=== PATIENT | female | born 1950 | race Caucasian/White ===

== ENCOUNTER 2018-02-27 21:48 | Inpatient (IN) ==
--- NOTE | 2018-02-27 22:30 | ED ---
HPI General Chief Complaint: Extremity Injury, Upper Stated Complaint: Evac/Fall Time Seen by Provider: 02/27/18 22:13 Source: patient and EMS Mode of arrival: EMS Limitations: no limitations History of Present Illness HPI narrative: TRIPPED AND FELL INTO THE WALL HEARD CRUNCHING BREAKING SOUND SEVERE LEFT HUMERAL AREA DEFORMITY AND PAIN , PAIN SEVERE 10/10 WHEN MOVING , SHEE TOOK HYDROCODONE 10 MG po WHICH HELPED REDUCE PAIN TO 5/10 LOCALIZED SEVERE DULL ACHY FEELING LEFT MID SHAFT HUMERUS. OCCURRED JPTA.. PT HAS HTN AND COPD AND RA HX complaint: injury to: left and shoulder Onset (ago): minute(s) Related Data Home Medications Medication Instructions Recorded Confirmed Humira See Label Instructions .ROUTE 02/28/18 02/28/18 .COMPLEX amlodipine 2.5 mg PO DAILY 02/28/18 02/28/18 amlodipine 5 mg PO DAILY 02/28/18 02/28/18 ciprofloxacin HCl [Cipro] 500 mg PO DAILY 02/28/18 02/28/18 duloxetine [Cymbalta] 80 mg PO DAILY 02/28/18 02/28/18 gabapentin 300 mg PO TID 02/28/18 02/28/18 hydrocodone-acetaminophen 1 tab PO Q6H PRN 02/28/18 02/28/18 methotrexate 02/28/18 02/28/18 metoprolol tartrate 25 mg PO BID 02/28/18 02/28/18 paroxetine HCl [Paxil] 40 mg PO DAILY 02/28/18 02/28/18 prednisone 5 mg PO DAILY 02/28/18 02/28/18 sulfamethoxazole-trimethoprim 1 tab PO DAILY 02/28/18 02/28/18 [Bactrim DS] Allergies Allergy/AdvReac Type Severity Reaction Status Date / Time Penicillins Allergy Anaphylaxis Verified 02/27/18 22:30 Review of Systems Except as stated in HPI: all other systems reviewed are negative [facility] Medical History Medical History COPD (chronic obstructive pulmonary disease) (Acute) HTN (hypertension) (Acute) Rheumatoid arthritis (Acute) Surgical History Surgical History H/O Spinal surgery (Acute) H/O foot surgery (Acute) History of gastric bypass (Acute) History of throat surgery (Acute) History of tonsillectomy and adenoidectomy (Acute) Social History Social History Substance History: No History of Abuse Second Hand Smoke Exposure: No Smoking Status: Former smoker Tobacco Type: Cigarettes How Often Do You Have a Drink Containing Alcohol: 2 to 3 times a week Recent Travel in [place] within the Last 8 Weeks: No Recent Out of Country Travel within the Last 8 Weeks: No Exam Narrative Exam Narrative: GENERAL: SPLINT LEFT ARM FROM PARAMEDICS SKIN: Focused skin assessment warm/dry. HEAD: Atraumatic. Normocephalic. EYES: Pupils equal and round. No scleral icterus. No injection or drainage. ENT: No nasal bleeding or discharge. Mucous membranes pink and moist. NECK: Trachea midline. No JVD. CARDIOVASCULAR: Regular rate and rhythm. No murmur appreciated. RESPIRATORY: No accessory muscle use. Clear to auscultation. Breath sounds equal bilaterally. GASTROINTESTINAL: Abdomen NO DISTENSION . MUSCULOSKELETAL: Obvious left arm deformity tenderness left midshaft upper extremity humerus area. N NEUROLOGICAL: Awake and alert. No obvious cranial nerve deficits. Motor grossly within normal limits. Normal speech. PSYCHIATRIC: Appropriate mood and affect; insight and judgment normal. Course Initial Documented Vital Signs Temperature 99.2 F 02/27/18 22:10 Pulse Rate 74 02/27/18 22:10 Respiratory Rate 18 02/27/18 22:10 Blood Pressure 183/91 H 02/27/18 22:10 Pulse Oximetry 94 L 02/27/18 22:10 Last Documented Vital Signs Temperature 99.2 F 02/27/18 22:10 Pulse Rate 77 02/28/18 01:28 Respiratory Rate 18 02/28/18 01:28 Blood Pressure 174/77 H 02/28/18 01:28 Pulse Oximetry 94 L 02/28/18 01:28 Medical Decision Making Imaging Data Radiologist's impression: Shoulder X-Ray 02/27/18 22:30 CONCLUSION: Proximal left humeral diaphyseal fracture. Arthritic changes and possible old loose bodies in the left shoulder joint Humerus X-Ray 02/27/18 22:31 CONCLUSION: Mildly displaced spiral fracture of the left humerus Chest X-Ray 02/27/18 23:17 CONCLUSION: No acute cardiopulmonary disease Discharge Plan Discharge Disposition Patient Disposition: 30 Still Patient Discharge Condition Condition: Stable Physicians Team ED Provider: Sammy Griggs Primary Care Provider: UNKNOWN, Attending Provider: Yanira Cruz Discharge Interventions Interventions: Vital Signs Last Done: 02/28/18 01:28 Status ED Status: Admitted Patient
--- NOTE | 2018-02-27 23:37 | XR ---
EXAM DATE: 02/27/2018 11:34 PM EDT AGE/SEX: 68 years / Female INDICATIONS: Please evaluate for pneumonia, pneumothorax, or any other communicable diseases. CLINICAL DATA: This is the patient's initial encounter. Patient reports that signs and symptoms have been present for 1 day and indicates a pain score of 0/10. MEDICAL/SURGICAL HISTORY: Chronic obstructive pulmonary disease. Hypertension. Rheumatoid arth ritis. Cholecystectomy. Gastric sleeve. Lumbar. COMPARISON: [facility], XR CHEST PA AND LAT, 11/23/2014. . FINDINGS: A single AP view of the chest demonstrates the lungs to be symmetrically aerated without evidence of mass, infiltrate or effusion. The cardiomediastinal contours are unremarkable. Severe degenerative c hange in the right shoulder. Proximal left humeral fracture. CONCLUSION: No acute cardiopulmonary disease Electronically signed by: Nelson Patrick MD 02/27/2018 11:36 PM EDT
--- NOTE | 2018-02-27 23:39 | XR ---
EXAM DATE: 02/27/2018 11:36 PM EDT AGE/SEX: 68 years / Female INDICATIONS: Trauma due to fall. CLINICAL DATA: This is the patient's initial encounter. Patient reports that signs and symptoms have been present for 1 day and indicates a pain score of 4/10. MEDICAL/SURGICAL HISTORY: Chronic obstructive pulmonary disease. Hypertension. Rheumatoid arth ritis. Cholecystectomy. Gastric sleeve. Lumbar. COMPARISON: No prior exams available for comparison. FINDINGS: There is an oblique mildly displaced fracture of the proximal left humeral diaphysis. There are small ossific fragments projecting along the inferior aspect of the glenohumeral joint which do not have t he appearance of acute fractures, rather potentially osseous joint bodies. Mild arthritic changes pre sent in the glenohumeral joint and also in the acromioclavicular joint. Clavicle and ribs appear francisco sly intact. CONCLUSION: Proximal left humeral diaphyseal fracture. Arthritic changes and possible old loose bodies in the lef t shoulder joint Electronically signed by: Nelson Patrick MD 02/27/2018 11:37 PM EDT
--- NOTE | 2018-02-27 23:54 | XR ---
EXAM DATE: 02/27/2018 11:37 PM EDT AGE/SEX: 68 years / Female INDICATIONS: Trauma due to fall. CLINICAL DATA: This is the patient's initial encounter. Patient reports that signs and symptoms have been present for 1 day and indicates a pain score of 4/10. MEDICAL/SURGICAL HISTORY: Chronic obstructive pulmonary disease. Hypertension. Rheumatoid arth ritis. Cholecystectomy. Gastric sleeve. Lumbar. [place] [facility] [place]. . FINDINGS: There is a spiral mildly displaced fracture of the proximal left humeral diaphysis. CONCLUSION: Mildly displaced spiral fracture of the left humerus Electronically signed by: Nelson Patrick MD 02/27/2018 11:53 PM EDT
[2018-02-28] MEDS ORDERED: Morphine Inj 4 MG/ML Vial IV.PUSH ONE (01:38)
[2018-02-28] MEDS ORDERED: Bisacodyl 10 MG Supp RECTAL PRN ×2 (01:42→14:05)
[2018-02-28] MEDS ORDERED: Acetaminophen 325 MG Tablet PO PRN (01:42)
[2018-02-28] MEDS ORDERED: Temazepam 15 MG Capsule PO PRN (01:42)
[2018-02-28] MEDS ORDERED: Morphine Inj 4 MG/ML Vial IV.PUSH PRN ×2 (02:00→14:05)
[2018-02-28] MEDS: Sod Chloride 0.9% Inj 1,000 ML IV.CONT SCH ×2 (02:00→17:43)
[2018-02-28 02:14] LABS: Baso # (Auto) 0.1 th/mm3 (0.0-0.2); Baso % (Auto) 0.7 % (0.0-2.0); Eos # (Auto) 0.2 th/mm3 (0.0-0.4); Eos % (Auto) 1.8 % (0.0-4.0); Hematocrit 38.2 % (35.0-46.0); Hemoglobin 12.6 gm/dL (11.6-15.3); Lymph # (Auto) 1.8 th/mm3 (1.0-4.8); Lymph % (Auto) 16.9 % (9.0-44.0); Mean Corpuscular HGB Conc 33.1 % (32.0-36.0); Mean Corpuscular Hemoglobin 32.6 pg (27.0-34.0); Mean Corpuscular Volume 98.4 fL (80.0-100.0); Mean Platelet Volume 9.7 fL (7.0-11.0); Mono # (Auto) 1.1 th/mm3 (0.0-0.9); Mono % (Auto) 10.8 % (0.0-8.0); Neut # (Auto) 7.3 th/mm3 (1.8-7.7); Neut % (Auto) 69.8 % (16.0-70.0); Platelet Count 210 th/mm3 (150-450); Red Blood Count 3.88 mil/mm3 (4.00-5.30); White Blood Count 10.4 th/mm3 (4.0-11.0)
[2018-02-28 02:24] LABS: Prothrombin Time 10.6 sec (9.8-11.6)
[2018-02-28 02:40] LABS: Alanine Aminotransferase 26 U/L (10-53); Albumin 3.8 g/dL (3.4-5.0); Anion Gap 10 meq/L (5-15); Aspartate Aminotransferase 34 U/L (15-37); Blood Urea Nitrogen 16 mg/dL (7-18); Calcium 9.3 mg/dL (8.5-10.1); Carbon Dioxide 27.7 meq/L (21.0-32.0); Chloride 105 meq/L (98-107); Glomerular Filtration Rate Greater Than 89 mL/min (>89); Glucose,Random 102 mg/dL (74-106); Potassium 3.4 meq/L (3.5-5.1); Sodium 143 meq/L (136-145)
[2018-02-28 02:41] LABS: Alkaline Phosphatase 90 U/L (45-117); Total Protein 7.2 g/dL (6.4-8.2)
--- NOTE | 2018-02-28 02:43 | P.HPIM ---
History of Present Illness Primary Care Physician: UNKNOWN History of Present Illness: This is a 68-year-old female with a PMH of HTN, COPD and Rheumatoid Arthritis who presented to the ER with complaints of left arm pain after a fall. States she was walking backwards while talking to her and had mechanical fall onto outstretched arm. Notes severe pain, 10/10, constant, non-radiating, worse w/ movement. No other injuries reported. On arrival, BP 183/91, HR 74, O2 sat 94% on RA, Temp 99.2. CBC unremarkable. CXR with no acute findings. Humerus X-ray mildly displaced spiral fracture of left humerus. Shoulder X-ray proximal left humeral diaphyseal fracture, arthritic changes. Dr. Staley consulted by ER physician, plan is for surgical intervention. - Diagnosis (1) Humerus fracture (2) HTN (hypertension) Inpatient Certification: I certify that the inpatient services were ordered in accordance with Medicare regulations governing the order. This includes certification that hospital inpatient services are reasonable and necessary and in the case of services not specified as inpatient-only under 42 CFR 419.22(n), that they are appropriately provided as inpatient services in accordance to with the 2-midnight benchmark under 43 CFR 412.3(e) Estimated Total Length of Stay (Days): 2 Plans for Post Hospital Care: Not yet determined Review of Systems All other systems reviewed negative except as stated in HPI [facility] - History History Provided By: Patient - Medical History Medical History: Medical History (Last Updated 02/27/18 @ 22:39 by Sally Lopes) COPD (chronic obstructive pulmonary disease) HTN (hypertension) Rheumatoid arthritis - Surgical History Surgical History: Surgical History (Last Updated 02/27/18 @ 22:39 by Sally Lopes) H/O Spinal surgery H/O foot surgery History of gastric bypass History of throat surgery History of tonsillectomy and adenoidectomy - Tobacco History Second Hand Smoke Exposure: No Tobacco Use In Past 30 Days: No Smoking Status: Former smoker Tobacco Type: Cigarettes - Alcohol History How Often Do You Have a Drink Containing Alcohol: 2 to 3 times a week - Substance Use History Substance History: No History of Abuse - Travel History Recent Travel in the [place] Within the Last 8 Weeks: No Recent Travel Out of the Country Within the Last 8 Weeks: No - Immunization History Tetanus Immunization: Unsure Hx Influenza Vaccine This Season: No Medications and Allergies Active Medications: Active Medications Acetaminophen (Tylenol) 650 mg PO Q4H PRN PRN Reason: Temp > 100.4 Hydrocodone Bitart/Acetaminophen (Cleves 10/325) 1 tab PO Q4H PRN PRN Reason: PAIN 3-5 Al Hydroxide/Mg Hydroxide (Milk Of Magnesia Liq) 30 ml PO Q12H PRN PRN Reason: Mild Constipation Amlodipine Besylate (Norvasc) 5 mg PO DAILY [facility] Bisacodyl (Dulcolax Supp) 10 mg RECTAL DAILY PRN PRN Reason: SEVERE CONSITIPATION Duloxetine HCl (Cymbalta) 80 mg PO DAILY [facility] Gabapentin (Neurontin) 300 mg PO TID [facility] Sodium Chloride (Ns Inj) 1,000 mls @ 100 mls/hr IV.CONT .Q10H [facility] Last Admin: 02/28/18 02:00 Dose: 100 mls/hr Lactulose (Lactulose Liq) 30 ml PO DAILY PRN PRN Reason: SEVERE CONSITIPATION Metoclopramide HCl (Reglan Inj) 5 mg IV.PUSH Q6HR PRN; Protocol PRN Reason: NAUSEA OR VOMITING Metoprolol Tartrate (Lopressor) 25 mg PO BID [facility] Morphine Sulfate (Morphine Inj) 2 mg IV.PUSH Q4H PRN PRN Reason: PAIN 6-10 Paroxetine HCl (Paxil) 40 mg PO DAILY [facility] Prednisone (Deltasone) 5 mg PO DAILY [facility] Senna/Docusate Sodium (Antonia-Colace) 1 tab PO BID [facility] Sennosides (Senokot) 17.2 mg PO Q12H PRN PRN Reason: Moderate Constipation Temazepam (Restoril) 15 mg PO HS PRN PRN Reason: INSOMNIA Allergies Allergy/AdvReac Type Severity Reaction Status Date / Time Penicillins Allergy Anaphylaxis Verified 02/27/18 22:30 Home Medications Medication Instructions Recorded Confirmed Type Humira See Label Instructions .ROUTE 02/28/18 02/28/18 History .COMPLEX amlodipine 2.5 mg PO DAILY 02/28/18 02/28/18 History amlodipine 5 mg PO DAILY 02/28/18 02/28/18 History ciprofloxacin HCl [Cipro] 500 mg PO DAILY 02/28/18 02/28/18 History duloxetine [Cymbalta] 80 mg PO DAILY 02/28/18 02/28/18 History gabapentin 300 mg PO TID 02/28/18 02/28/18 History hydrocodone-acetaminophen 1 tab PO Q6H PRN 02/28/18 02/28/18 History methotrexate 02/28/18 02/28/18 History metoprolol tartrate 25 mg PO BID 02/28/18 02/28/18 History paroxetine HCl [Paxil] 40 mg PO DAILY 02/28/18 02/28/18 History prednisone 5 mg PO DAILY 02/28/18 02/28/18 History sulfamethoxazole-trimethoprim 1 tab PO DAILY 02/28/18 02/28/18 History [Bactrim DS] Exam Vital signs: Vital Signs 02/27/18 22:10 02/28/18 01:28 Temperature 99.2 F Pulse Rate 74 77 Respiratory Rate 18 18 Blood Pressure 183/91 H 174/77 H Pulse Oximetry 94 L 94 L Intake & Output 02/27/18 02/27/18 02/28/18 06:59 18:59 06:59 Weight 97.069 kg Narrative: PE: GENERAL: Pleasant middle-aged white female in no acute distress. HEENT: PERRLA, EOMI. No scleral icterus or conjunctival pallor. No lid lag or facial droop. CARDIOVASCULAR: Regular rate and rhythm. No obvious murmurs to auscultation. No chest tenderness to palpation. RESPIRATORY: No obvious rhonchi or wheezing. Clear to auscultation. Breath sounds equal bilaterally. GASTROINTESTINAL: Abdomen soft, non-tender, nondistended. BS normal. MUSCULOSKELETAL: Extremities without clubbing, cyanosis, or edema. No obvious deformities. Decreased ROM of LUE due to pain/injury. NEUROLOGICAL: Awake, alert and oriented x4. No focal neurologic deficits. Moving both upper and lower extremities spontaneously. Results - Labs CBC & Chem 7: 02/28/18 01:28 02/28/18 01:28 Labs: Short CBC 02/28/18 Range/Units 01:28 WBC 10.4 (4.0-11.0) th/mm3 Hgb 12.6 (11.6-15.3) gm/dL Hct 38.2 (35.0-46.0) % Plt Count 210 (150-450) th/mm3 - Imaging Impressions Shoulder X-Ray 02/27/18 22:30 CONCLUSION: Proximal left humeral diaphyseal fracture. Arthritic changes and possible old loose bodies in the left shoulder joint Humerus X-Ray 02/27/18 22:31 CONCLUSION: Mildly displaced spiral fracture of the left humerus Chest X-Ray 02/27/18 23:17 CONCLUSION: No acute cardiopulmonary disease Caprini VTE Risk Assessment Caprini VTE Risk Assessment: No/Low Risk (score <= 1) Caprini Risk Assessment Model: Point Value = 1 Point Value = 2 Point Value = 3 Point Value = 5 Age 41-60 Minor surgery BMI > 25 kg/m2 Swollen legs Varicose veins or History of unexplained or recurrent spontaneous Oral contraceptives or hormone replacement Sepsis (< 1 month) Serious lung disease, including pneumonia (< 1 month) Abnormal pulmonary function Acute myocardial infarction Congestive heart failure (< 1 month) History of inflammatory bowel disease Medical patient at bed rest Age 61-74 Arthroscopic surgery Major open surgery (> 45 min) Laparoscopic surgery (> 45 min) Malignancy Confined to bed (> 72 hours) Immobilizing plaster cast Central venous access Age >= 75 History of VTE Family history of VTE Factor V Leiden Prothrombin [id number] Lupus anticoagulant Anticardiolipin antibodies Elevated serum homocysteine Heparin-induced thrombocytopenia Other congenital or acquired thrombophilia Stroke (< 1 month) Elective arthroplasty Hip, pelvis, or leg fracture Acute spinal cord injury (< 1 month) Prophylaxis Regimen: Total Risk Factor Score Risk Level Prophylaxis Regimen 0-1 Low Early ambulation 2 Moderate Order ONE of the following: *Sequential Compression Device (SCD) *Heparin 5000 units SQ BID 3-4 Higher Order ONE of the following medications: *Heparin 5000 units SQ TID *Enoxaparin/Lovenox 40 mg SQ daily (WT < 150 kg, CrCl > 30 mL/min) *Enoxaparin/Lovenox 30 mg SQ daily (WT < 150 kg, CrCl > 10-29 mL/min) *Enoxaparin/Lovenox 30 mg SQ BID (WT < 150 kg, CrCl > 30 mL/min) AND/OR *Sequential Compression Device (SCD) 5 or more Highest Order ONE of the following medications: *Heparin 5000 units SQ TID (Preferred with Epidurals) *Enoxaparin/Lovenox 40 mg SQ daily (WT < 150 kg, CrCl > 30 mL/min) *Enoxaparin/Lovenox 30 mg SQ daily (WT < 150 kg, CrCl > 10-29 mL/min) *Enoxaparin/Lovenox 30 mg SQ BID (WT < 150 kg, CrCl > 30 mL/min) AND *Sequential Compression Device (SCD) Assessment and Plan - Assessment (1) Humerus fracture Code(s): S42.309A - Unspecified fracture of shaft of humerus, unspecified arm, initial encounter for closed fracture Status: Acute (2) HTN (hypertension) Code(s): I10 - Essential (primary) hypertension Status: Acute - Plan A/P: 1. Left Humerus Fx: s/p mechanical fall, no head trauma or LOC reported, Humerus X-ray w/ mildly displaced spiral fracture of left humerus, images reviewed by me. Dr. Staley consulted, plan for surgical intervention, NPO, IVF , analgesics/antiemetics as needed. 2. HTN: Uncontrolled. BP 170's, likely compounded by pain complaints, monitor BP, antihypertensives as needed for BP >180 3. DVT Prophylaxis: SCD/Teds 4. Social work for d/c planning as needed 5. Case discussed w/ ER physician at length, labs/records/imaging reviewed by me.
[2018-02-28] MEDS ORDERED: Hydrocortisone Sod Succinate 100 MG Vial ONE (11:55)
[2018-02-28] MEDS ORDERED: Sodium Chlor 0.9% Inj 500 ML IV.SIG SCH (12:00)
[2018-02-28] MEDS ORDERED: Metoprolol Tartrate 25 MG Tablet PO SCH (12:00)
[2018-02-28] MEDS ORDERED: Chlorhexidine Gluconate 2% 1 Pack (2 Cloths) TOPICAL SCH (12:00)
--- NOTE | 2018-02-28 13:18 | MB ---
cc: Carl Staley MD DATE: 02/28/2018 REASON FOR CONSULTATION: Left humerus fracture. HISTORY OF PRESENT ILLNESS: This is a 68-year-old female with past medical history of hypertension, COPD, rheumatoid arthritis who presents to [facility] Emergency Room after a fall, sustaining a severe injury to the left arm and humerus. She complained of severe pain. She lost her balance and fell backwards. 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 Pain was 10/10, constant, throbbing. Worsens with any movement. No alleviating factors. X-rays revealed evidence of a displaced spiral humerus fracture,on the left side. Orthopedic surgery was consulted. She was placed in a sling and a posterior arm splint. PAST MEDICAL HISTORY: Positive for rheumatoid arthritis, hypertension, COPD. PAST SURGICAL HISTORY: She has a history of spine surgery, foot surgery, gastric bypass, throat surgery, tonsillectomy, adenoidectomy. SOCIAL HISTORY: She is a former smoker, does not currently smoke. She drinks 2 drinks a week. Denies substance abuse. MEDICATIONS: Include: 1. Temazepam. 2. Prozac. 3. Metoprolol. 4. Neurontin. 5. Amlodipine. 6. She states that she takes prednisone 5 mg per day for her rheumatoid arthritis. 7. She does take Humira, but states she has not taken this medication in over 1 month. REVIEW OF SYSTEMS: Negative for 10 systems other than HPI. PHYSICAL EXAMINATION: VITAL SIGNS: Temperature is 99.2, pulse is 74, respirations 18, blood pressure 180/90, saturating 94% on room air. GENERAL: The patient is awake, alert, lying in bed. She is in moderate distress. HEENT: Normocephalic, atraumatic. Pupils round. Extraocular muscles intact. NECK: Supple. LUNGS: Clear. HEART: Regular rate and rhythm. ABDOMEN: Soft, nontender. PSYCHOLOGIC: Her mood is appropriate, as is her affect. NEUROLOGIC: She is alert and oriented. No neurologic deficit. EXTREMITIES: Left upper extremity has swelling and ecchymosis. Tender to palpation in the region of the humerus. She can flex and extend her wrist and digits. 2+ radial pulse. Compartments are soft. Neurovascularly intact distally. LABORATORY DATA: White blood cell count is 10.4, hemoglobin is 12, hematocrit is 38, platelets 210. IMAGING STUDIES: X-ray left humerus shows a displaced left spiral fracture of the humeral shaft. IMPRESSION: This is a 68-year-old with female left humerus shaft fracture, status post fall, history of rheumatoid arthritis, history of being on Humira in the past, but has not been taking this medication for over 1 month. She does say she takes prednisone 5 mg daily. PLAN: I discussed the diagnosis with the patient and treatment options of both operative and nonoperative treatments with splinting, immobilization and conservative care. We spoke about the option of surgery, which would consist of open reduction with internal fixation with intramedullary nailing. Risks of surgery were discussed, which include, but not limited to anesthesia, bleeding, infection, damage to nerves and blood vessels, pain, stiffness, failure of hardware and blood clots. The patient has asked appropriate questions, which have been answered. She favored the benefits over the risks. She did wish to proceed with surgery. Written consent has been obtained. The surgical site has been marked. MD ERIK Morrison/KASHIF , 12:05 PM , 01:16 PM
[2018-02-28] MEDS ORDERED: Sugammadex Inj 200 MG/2 ML Vial IV.PUSH ONE (13:40)
[2018-02-28] MEDS ORDERED: Promethazine 25 MG Supp RECTAL PRN (14:05)
[2018-02-28] MEDS ORDERED: Zolpidem Tartrate 5 MG Tablet PO PRN (14:05)
[2018-02-28] MEDS ORDERED: Post-op Orders (for Pharmacy) OTHER STA (14:05)
[2018-02-28] MEDS ORDERED: fentaNYL Citrate Inj 100 MCG/2 ML Ampul ONE (14:08)
[2018-02-28] MEDS ORDERED: *morphine SULFATE 4 MG/ML PERIprocedure ONLY ONE (14:29)
[2018-02-28] MEDS ORDERED: Labetalol HCl Inj 100 MG/20 ML Vial IV.CONT ONE (14:47)
[2018-02-28] MEDS ORDERED: Phenylephrine/NS 1000 MCG/10ML Syringe IV.PUSH ONE (14:47)
[2018-02-28] MEDS ORDERED: Lidocaine PF 1% Inj 5 ML Syringe INFILTRATN ONE (14:47)
--- NOTE | 2018-02-28 14:58 | MP ---
cc: Carl Staley MD DATE OF OPERATION: 02/28/2018 DATE OF PROCEDURE: 02/28/2018 PREOPERATIVE DIAGNOSIS: Left humerus fracture. POSTOPERATIVE DIAGNOSIS: Left humerus fracture. PROCEDURE PERFORMED: Intramedullary nailing, left humerus fracture. SURGEON: Carl Staley MD DOCTOR NATUROPATHIC: CORTEZ Link. ANESTHESIA: General. ESTIMATED BLOOD LOSS: 100 mL. COMPLICATIONS: None. IMPLANTS USED: Synthes 7 x 240 mm titanium humeral nail. JUSTIFICATION: The patient is a 68-year-old female who fell, sustaining a displaced left humeral shaft fracture. The patient presented to the [facility] Emergency Room. X-rays confirmed the above-named findings. Orthopedic surgery was consulted. The patient was counseled as to the risks, benefits and alternatives to the above-named proposed surgical procedure, and she did wish to proceed with surgery. PROCEDURE IN DETAIL: Written consent was obtained. The patient was identified by name, taken to the operating room and placed supine on the operating table, and general anesthesia was administered, as well as 2 grams of IV Ancef and 1 gram IV vancomycin. The left shoulder and left upper extremity prepped and draped using isopropyl alcohol, Hibiclens solution and ChloraPrep solution. After a timeout was performed, a longitudinal incision was made over superior aspect of the left shoulder. A guidewire was used to enter into the superior aspect of the humerus. This was centered on the AP and lateral fluoroscopic projections. Subsequently, a cannulated entry reamer was used to create a army helicopter pilot hole within the superior aspect of the humerus. A long beaded-tip guidewire was then placed down the intramedullary canal of the humerus. Jayjay Thompson physician appeals assistant was instrumental in assisting with fracture reduction during placement of the guidewire, which did transverse the fracture. Subsequently, a Synthes 7 x 240 mm titanium humeral nail was inserted over the guidewire into the intramedullary canal of the humerus. The guidewire was removed. The locking jig was used to place a single lateral to medial transverse proximal static locking screw measuring 42 mm in length. Distally, the fluoroscopic perfect [place] technique was used to place a single 24 mm screw in the AP plane for proximal and distal fixation. Fluoroscopic imaging confirmed hardware placement and fracture reduction. The surgical wounds were thoroughly irrigated with sterile saline solution. The subcutaneous layer was closed with 3-0 Vicryl suture. Skin was closed with Dermabond. Sterile dressings were applied. The patient tolerated the procedure well. No intraoperative complications noted. Jayjay Thompson, physician appeals assistant certified was present during the entire procedure to include patient positioning and the procedure itself. The medical necessity of the physician appeals assistant was indicated in this case due to the complexity of the procedure. He assisted with appropriate manipulation of the fracture. He assisted with both achieving and maintaining fracture reduction along with implantation of the internal fixation device. Carl Staley MD JWM/KD , 01:42 PM , 02:56 PM
[2018-02-28] MEDS: Gabapentin 300 MG Capsule PO SCH ×2 (15:06→17:39)
[2018-02-28] MEDS: predniSONE 5 MG Tablet PO SCH (15:06)
[2018-02-28] MEDS: amLODIPine 5 MG Tablet PO SCH (15:07)
[2018-02-28] MEDS: Senna/Docusate Sodium 8.6/50 MG Tablet PO SCH ×3 (15:08→20:57)
[2018-02-28] MEDS: Metoprolol Tartrate 25 MG Tablet PO SCH ×2 (15:10→20:56)
--- NOTE | 2018-02-28 15:26 | XR ---
EXAM DATE: 02/28/2018 2:55 PM EDT AGE/SEX: 68 years / Female INDICATIONS: Left humeral nail. CLINICAL DATA: This is the patient's initial encounter. Patient reports that signs and symptoms have been present for 1 day and indicates a pain score of Nonresponsive. MEDICAL/SURGICAL HISTORY: Non-responsive. Non-responsive. COMPARISON: No prior exams available for comparison. FINDINGS: There are postsurgical changes with operative reduction and internal fixation of the previously seen fracture. The alignment is anatomic. CONCLUSION: Postsurgical changes as above. Electronically signed by: Richmond Victoria MD 02/28/2018 3:25 PM EDT
[2018-03-01] MEDS ORDERED: Vancomycin Inj 1 GM/200 ML PIGGYBACK IV.SIG SCH (01:00)
[2018-03-01] MEDS: Sod Chloride 0.9% Inj 1,000 ML IV.CONT SCH (03:18)
[2018-03-01 07:26] LABS: Baso % (Auto) 0.4 % (0.0-2.0); Eos # (Auto) 0.3 th/mm3 (0.0-0.4); Eos % (Auto) 4.7 % (0.0-4.0); Hematocrit 31.8 % (35.0-46.0); Hemoglobin 10.6 gm/dL (11.6-15.3); Lymph # (Auto) 2.1 th/mm3 (1.0-4.8); Lymph % (Auto) 28.9 % (9.0-44.0); Mean Corpuscular HGB Conc 33.2 % (32.0-36.0); Mean Corpuscular Hemoglobin 33.4 pg (27.0-34.0); Mean Corpuscular Volume 100.4 fL (80.0-100.0); Mean Platelet Volume 9.5 fL (7.0-11.0); Mono # (Auto) 0.9 th/mm3 (0.0-0.9); Mono % (Auto) 12.3 % (0.0-8.0); Neut # (Auto) 3.9 th/mm3 (1.8-7.7); Neut % (Auto) 53.7 % (16.0-70.0); Platelet Count 174 th/mm3 (150-450); Red Blood Count 3.16 mil/mm3 (4.00-5.30); White Blood Count 7.2 th/mm3 (4.0-11.0)
[2018-03-01 08:29] LABS: Alanine Aminotransferase 29 U/L (10-53); Albumin 3.1 g/dL (3.4-5.0); Alkaline Phosphatase 79 U/L (45-117); Anion Gap 6 meq/L (5-15); Aspartate Aminotransferase 37 U/L (15-37); Blood Urea Nitrogen 8 mg/dL (7-18); Calcium 8.4 mg/dL (8.5-10.1); Carbon Dioxide 30.3 meq/L (21.0-32.0); Chloride 107 meq/L (98-107); Glomerular Filtration Rate Greater Than 89 mL/min (>89); Glucose,Random 94 mg/dL (74-106); Potassium 3.7 meq/L (3.5-5.1); Sodium 143 meq/L (136-145); Total Protein 6.1 g/dL (6.4-8.2)
[2018-03-01] MEDS: Metoprolol Tartrate 25 MG Tablet PO SCH ×2 (08:43→20:13)
[2018-03-01] MEDS: predniSONE 5 MG Tablet PO SCH (08:43)
[2018-03-01] MEDS: amLODIPine 5 MG Tablet PO SCH (08:43)
[2018-03-01] MEDS: Multivitamin/Minerals Therapeutic Tablet PO SCH (08:44)
[2018-03-01] MEDS: Folic Acid 1 MG Tablet PO SCH (08:44)
[2018-03-01] MEDS: Senna/Docusate Sodium 8.6/50 MG Tablet PO SCH ×3 (08:44→20:12)
[2018-03-01] MEDS: Gabapentin 300 MG Capsule PO SCH ×3 (08:44→18:20)
--- NOTE | 2018-03-01 10:01 | P.PN ---
Subjective Interval history: Follow-up humerus fracture status post fall. Tolerable pain. She wants to go home currently receiving IV antibiotics ordered by orthopedic surgery. Discussed with nursing, patient is medically cleared for discharge pending clearance from orthopedic surgery Physical Exam Vital signs: Vital Signs 02/28/18 10:38 02/28/18 14:00 02/28/18 14:15 Temperature 98.6 F Pulse Rate 86 85 Respiratory Rate 20 14 15 Blood Pressure 159/72 H 141/71 H Pulse Oximetry 100 96 02/28/18 14:30 02/28/18 14:45 02/28/18 15:00 Temperature 98.4 F Pulse Rate 85 86 84 Respiratory Rate 16 16 16 Blood Pressure 137/66 129/63 130/66 Pulse Oximetry 96 95 96 02/28/18 15:49 02/28/18 17:40 02/28/18 19:42 Temperature 98.4 F Pulse Rate 92 H Respiratory Rate 16 17 17 Blood Pressure 124/60 Pulse Oximetry 92 L 03/01/18 00:05 03/01/18 04:10 03/01/18 08:00 Temperature 98.3 F 98.2 F 98.9 F Pulse Rate 71 74 Respiratory Rate 18 17 20 Blood Pressure 155/72 H 135/60 181/76 H Pulse Oximetry 92 L 92 L 94 L 03/01/18 08:45 Temperature Pulse Rate Respiratory Rate 20 Blood Pressure Pulse Oximetry Intake & Output 02/28/18 03/01/18 03/01/18 18:59 06:59 18:59 Intake Total 2150 / 2150 1720 / 1720 Output Total 50 / 50 Balance 2100 / 2100 1720 / 1720 Weight 96.4 kg Intake: IV 1000 / 1000 1000 / 1000 LR 1000 mL Inj 1,000 ML @ 100 1000 / 1000 mls/hr IV.CONT .Q10H VIVIAN Rx#: [id number] NS Inj 1,000 ML @ 100 mls/hr IV 1000 / 1000 .CONT .Q10H VIVIAN Rx#:[id number] Oral 720 / 720 Anesthesia Amount 1150 / 1150 Output: Estimated Blood Loss 50 / 50 Other: # Voids 5 Date of Last Bowel Movement 02/27/18 # Bowel Movements 0 Narrative: GENERAL: Pleasant middle-aged white female in no acute distress. CARDIOVASCULAR: Regular rate and rhythm. No obvious murmurs to auscultation. No chest tenderness to palpation. RESPIRATORY: No obvious rhonchi or wheezing. Clear to auscultation. Breath sounds equal bilaterally. GASTROINTESTINAL: Abdomen soft, non-tender, nondistended. BS normal. MUSCULOSKELETAL: Extremities without clubbing, cyanosis, or edema. No obvious deformities. Left upper extremity in a sling. Neurovascularly intact NEUROLOGICAL: Awake, alert and oriented x4. No focal neurologic deficits. Results - Labs CBC & Chem 7: 03/01/18 06:45 03/01/18 06:45 Laboratory Results - last 24 hr 03/01/18 03/01/18 06:45 06:45 WBC 7.2 RBC 3.16 L Hgb 10.6 L D Hct 31.8 L MCV 100.4 H MCH 33.4 MCHC 33.2 RDW 15.0 Plt Count 174 MPV 9.5 Neut % (Auto) 53.7 Lymph % (Auto) 28.9 [place] % (Auto) 12.3 H Eos % (Auto) 4.7 H Baso % (Auto) 0.4 Neut # (Auto) 3.9 Lymph # (Auto) 2.1 [place] # (Auto) 0.9 Eos # (Auto) 0.3 Baso # (Auto) 0.0 WBC Differential . Differential Comment Auto diff final Sodium 143 Potassium 3.7 Chloride 107 Carbon Dioxide 30.3 Anion Gap 6 BUN 8 Creatinine 0.43 L Estimated GFR Greater than 89 Random Glucose 94 Calcium 8.4 L D Total Bilirubin 0.8 AST 37 ALT 29 Alkaline Phosphatase 79 Total Protein 6.1 L D Albumin 3.1 L D - Imaging Impressions Humerus X-Ray 02/28/18 00:00 CONCLUSION: Postsurgical changes as above. - Procedures Intramedullary nailing, left humerus fracture. Assessment and Plan - Assessment (1) Humerus fracture Code(s): S42.309A - Unspecified fracture of shaft of humerus, unspecified arm, initial encounter for closed fracture Status: Acute (2) HTN (hypertension) Code(s): I10 - Essential (primary) hypertension Status: Acute - Plan 1. Left Humerus Fx: s/p mechanical fall, no head trauma or LOC reported, Humerus X-ray w/ mildly displaced spiral fracture of left humerus, images reviewed by me. Status post repair by Dr. Staley. Stable. Continue postoperative care with wound care, physical therapy, OT, pain management, incentive spirometry and DVT prophylaxis 2. HTN: Uncontrolled. BP 170's, likely compounded by pain complaints, monitor BP, antihypertensives as needed for BP >180. Improving 3. DVT Prophylaxis: SCD/Teds Discharge Planning: Discharge patient to home Condition on discharge: Improved Regular Diet as tolerated Ad Silvia activity nonweightbearing left upper extremity Rx written: Rupal per orthopedic surgery Follow-up with primary care physician and orthopedic surgery
[2018-03-01] MEDS ORDERED: Vancomycin Inj 1,000 MG in Sodium Chlor 0.9% Inj 250 ML IV.SIG SCH (13:00)
[2018-03-02] MEDS: Gabapentin 300 MG Capsule PO SCH ×2 (08:31→12:34)
[2018-03-02] MEDS: Folic Acid 1 MG Tablet PO SCH (08:31)
[2018-03-02] MEDS: amLODIPine 5 MG Tablet PO SCH (08:31)
[2018-03-02] MEDS: Multivitamin/Minerals Therapeutic Tablet PO SCH (08:32)
[2018-03-02] MEDS: Senna/Docusate Sodium 8.6/50 MG Tablet PO SCH (08:32)
[2018-03-02] MEDS: predniSONE 5 MG Tablet PO SCH (08:32)
[2018-03-02] MEDS: Metoprolol Tartrate 25 MG Tablet PO SCH (08:34)
[2018-03-02 10:54] LABS: Hematocrit 33.5 % (35.0-46.0); Hemoglobin 10.8 gm/dL (11.6-15.3)
[2018-03-02] MEDS ORDERED: Ciprofloxacin 500 MG Tablet PO SCH (12:00)
--- NOTE | 2018-03-02 12:02 | P.PN ---
Subjective Interval history: Follow-up left humerus fracture. She is doing okay and wants to go home. Discussed with RN to contact orthopedic surgery for discharge clearance Physical Exam Vital signs: Vital Signs 03/01/18 16:00 03/01/18 19:15 03/02/18 00:15 Temperature 98.2 F 97.7 F 97.9 F Pulse Rate 75 101 H 67 Respiratory Rate 18 18 Blood Pressure 130/61 147/88 H 122/59 L Pulse Oximetry 94 L 92 L 92 L 03/02/18 02:00 03/02/18 05:46 03/02/18 08:00 Temperature 97.3 F L Pulse Rate 71 Respiratory Rate 18 8 L 16 Blood Pressure 127/61 Pulse Oximetry 94 L Intake & Output 03/01/18 03/02/18 03/02/18 18:59 06:59 18:59 Intake Total 930 / 930 480 / 480 Balance 930 / 930 480 / 480 Intake: Oral 730 / 730 480 / 480 Other 200 / 200 Other: Other Intake Source Saline Solution # Voids 4 3 Date of Last Bowel Movement 02/27/18 02/27/18 # Bowel Movements 0 Narrative: GENERAL: Pleasant middle-aged white female in no acute distress. CARDIOVASCULAR: Regular rate and rhythm. No obvious murmurs to auscultation. No chest tenderness to palpation. RESPIRATORY: Clear to auscultation. Breath sounds equal bilaterally. GASTROINTESTINAL: Abdomen soft, non-tender, nondistended. BS normal. MUSCULOSKELETAL: Extremities without clubbing, cyanosis, or edema. No obvious deformities. Left upper extremity in a sling. Neurovascularly intact NEUROLOGICAL: Awake, alert and oriented x4. No focal neurologic deficits. Results - Labs CBC & Chem 7: 03/02/18 08:52 03/01/18 06:45 Laboratory Results - last 24 hr 03/02/18 08:52 Hgb 10.8 L Hct 33.5 L - Procedures Intramedullary nailing, left humerus fracture. Assessment and Plan - Assessment (1) Humerus fracture Code(s): S42.309A - Unspecified fracture of shaft of humerus, unspecified arm, initial encounter for closed fracture Status: Acute (2) HTN (hypertension) Code(s): I10 - Essential (primary) hypertension Status: Acute - Plan 1. Left Humerus Fx: s/p mechanical fall, no head trauma or LOC reported, Humerus X-ray w/ mildly displaced spiral fracture of left humerus, images reviewed by me. Status post repair by Dr. Staley. Stable. Continue postoperative care with wound care, physical therapy, OT, pain management, incentive spirometry and DVT prophylaxis. Counseled regarding narcotics. Restart Humira and methotrexate when cleared by orthopedic surgery 2. HTN: Uncontrolled. BP 170's, likely compounded by pain complaints, monitor BP, antihypertensives as needed for BP >180. Improving 3. DVT Prophylaxis: SCD/Teds Discharge Planning: Discharge patient to home Condition on discharge: Improved Regular Diet as tolerated Ad Silvia activity nonweightbearing left upper extremity Rx written: Lortab per orthopedic surgery Follow-up with primary care physician and orthopedic surgery
--- NOTE | 2018-03-02 12:23 | ECG ---
Date Performed: 02/28/2018 Time Performed: 08:58:10 PTAGE: 68 years EKG: Sinus rhythm MODERATE INTRAVENTRICULAR CONDUCTION DELAY ABNORMAL ECG NO PREVIOUS TRACING DOCTOR: Shyann Barreto Interpretating Date/Time 03/02/2018 12:11:20
--- NOTE | 2018-03-02 13:04 | P.DS ---
Date of admission: 02/28/18 01:27 Primary care physician: UNKNOWN Brief History from admission: This is a 68-year-old female with a PMH of HTN, COPD and Rheumatoid Arthritis who presented to the ER with complaints of left arm pain after a fall. States she was walking backwards while talking to her and had mechanical fall onto outstretched arm. Notes severe pain, 10/10, constant, non-radiating, worse w/ movement. No other injuries reported. On arrival, BP 183/91, HR 74, O2 sat 94% on RA, Temp 99.2. CBC unremarkable. CXR with no acute findings. Humerus X-ray mildly displaced spiral fracture of left humerus. Shoulder X-ray proximal left humeral diaphyseal fracture, arthritic changes. Dr. Staley consulted by ER physician, plan is for surgical intervention. DS: Diagnosis - Discharge Diagnosis (1) Humerus fracture Status: Acute (2) HTN (hypertension) Status: Acute DS: Summary Hospital Course: 1. Left Humerus Fx: s/p mechanical fall, no head trauma or LOC reported, Humerus X-ray w/ mildly displaced spiral fracture of left humerus, images reviewed by me. Status post repair by Dr. Staley. Stable. Continue postoperative care with wound care, physical therapy, OT, pain management, incentive spirometry and DVT prophylaxis. Counseled regarding narcotics. Restart Humira and methotrexate when cleared by orthopedic surgery 2. HTN: Uncontrolled. BP 170's, likely compounded by pain complaints, monitor BP, antihypertensives as needed for BP >180. Improving 3. DVT Prophylaxis: SCD/Teds - Time Spent with Patient Total time spent providing and/or coordinating discharge services: - Quality: VTE Deep Vein Thrombosis/Pulmonary Embolism Present on Admission: No Exam Vital signs: Vital Signs 03/01/18 16:00 03/01/18 19:15 03/02/18 00:15 Temperature 98.2 F 97.7 F 97.9 F Pulse Rate 75 101 H 67 Respiratory Rate 18 18 Blood Pressure 130/61 147/88 H 122/59 L Pulse Oximetry 94 L 92 L 92 L 03/02/18 02:00 03/02/18 05:46 03/02/18 08:00 Temperature 97.3 F L Pulse Rate 71 Respiratory Rate 18 8 L 16 Blood Pressure 127/61 Pulse Oximetry 94 L Intake & Output 03/01/18 03/02/18 03/02/18 18:59 06:59 18:59 Intake Total 930 / 930 480 / 480 Balance 930 / 930 480 / 480 Intake: Oral 730 / 730 480 / 480 Other 200 / 200 Other: Other Intake Source Saline Solution # Voids 4 3 Date of Last Bowel Movement 02/27/18 02/27/18 # Bowel Movements 0 Narrative: GENERAL: Pleasant middle-aged white female in no acute distress. CARDIOVASCULAR: Regular rate and rhythm. No obvious murmurs to auscultation. No chest tenderness to palpation. RESPIRATORY: Clear to auscultation. Breath sounds equal bilaterally. GASTROINTESTINAL: Abdomen soft, non-tender, nondistended. BS normal. MUSCULOSKELETAL: Extremities without clubbing, cyanosis, or edema. No obvious deformities. Left upper extremity in a sling. Neurovascularly intact NEUROLOGICAL: Awake, alert and oriented x4. No focal neurologic deficits. Results Procedures completed during hospitalization: Intramedullary nailing, left humerus fracture. Labs on day of discharge: Labs from last 24 hours 03/02/18 08:52 Hgb 10.8 L Hct 33.5 L - Impressions ITS Impressions Shoulder X-Ray 02/27/18 22:30 CONCLUSION: Proximal left humeral diaphyseal fracture. Arthritic changes and possible old loose bodies in the left shoulder joint Chest X-Ray 02/27/18 23:17 CONCLUSION: No acute cardiopulmonary disease Humerus X-Ray 02/28/18 00:00 CONCLUSION: Postsurgical changes as above. Discharge Plan - Discharge Disposition Patient Disposition: 01 Discharge Home - Discharge Condition Condition: Stable - Discharge Order Discharge Orders: Discharge Order (Routine); Ordered 03/02/18 Ordered By: Mg Mills Orthopedic Clear for Discharge (Routine); Ordered 03/02/18 Ordered By: Carl Staley - Physicians Team Primary Care Provider: UNKNOWN, Attending Provider: Mg Mills Other Providers: [employer]
[2018-03-02 13:36] VITALS: BP 130/65; PULSE 66; RESP 18; TEMP 98; O2SAT 92
== END 2018-03-02 14:48 | disposition home or self-care (01) ==
LOC: NEPC 21:48 → NEDA 02-28 01:27 → NEPFCDU 02-28 02:33 → N06 02-28 12:15
PROVIDERS: ADMIT Internal Medicine; ATTEND Internal Medicine